=== PATIENT | female | born 1950 | race Caucasian/White ===

== ENCOUNTER 2016-10-07 15:30 | Outpatient (RCR) | payer OTHER | END 2016-10-21 | disposition home or self-care (01) | LOC: PTY 15:30 | DX: M70.62 Trochanteric bursitis, left hip (principal); G89.29 Other chronic pain ==

== ENCOUNTER 2016-11-08 16:00 | Outpatient (RCR) | payer OTHER | END 2016-11-21 | disposition home or self-care (01) | LOC: PTY 16:00 | DX: G89.29 Other chronic pain (principal); M70.62 Trochanteric bursitis, left hip | CPT/HCPCS: 97110; 97140; G0283 ==

== ENCOUNTER 2016-11-26 16:28 | Outpatient (RCR) | payer OTHER | END 2016-12-21 | disposition home or self-care (01) | LOC: PTY 16:28 | DX: M70.62 Trochanteric bursitis, left hip (principal); G89.29 Other chronic pain; I10 Essential (primary) hypertension ==